=== PATIENT | male | born 1985 | race Hispanic/Latino ===

== ENCOUNTER 2018-08-03 08:47 | Emergency (ER) | payer BC ==
[2018-08-03 09:14] VITALS: BMI 29.9
--- NOTE | 2018-08-03 09:51 | ED PDOC ---
Arrival/HPI - General Chief Complaint: Finger,Hand,&Wrist Historian: Patient - History of Present Illness Narrative History of Present Illness (Text): 08/03/18 09:48 32 y/o male, no significant pmh, nkda, c/o rt. hand pain and swelling s/p punched the tile wall about 2 days ago. Aching pain, swelling, no numbness or tingling, concerning for fracture, mild pain with severity 2/10, refused pain med, no palpitation or chest pain, no other medical or psychological complaints. Past Medical History - Provider Review Nursing Documentation Reviewed: Yes - Cardiac Hx Cardiac Disorders: No - Pulmonary Hx Respiratory Disorders: No - Neurological Hx Neurological Disorder: No - HEENT Hx HEENT Disorder: No - Renal Hx Renal Disorder: No - Endocrine/Metabolic Hx Endocrine Disorders: Yes Hx Diabetes Mellitus Type 2: Yes - Hematological/Oncological Hx Blood Disorders: No - Integumentary Hx Dermatological Disorder: No - Musculoskeletal/Rheumatological Hx Musculoskeletal Disorders: No - Gastrointestinal Hx Gastrointestinal Disorders: No - Genitourinary/Gynecological Hx Genitourinary Disorders: No - Psychiatric Hx Psychophysiologic Disorder: No Hx Substance Use: No - Anesthesia Hx Anesthesia: No Family/Social History - Physician Review Nursing Documentation Reviewed: Yes Family/Social History: Unknown Family HX Smoking Status: Current Some Days Smoker Hx Alcohol Use: Yes Frequency of alcohol use: Socially Hx Substance Use: No Allergies/Home Meds Allergies/Adverse Reactions: Allergies No Known Allergies Allergy (Verified 08/03/18 09:50) Review of Systems - Review of Systems Constitutional: absent: Fatigue, Fevers Eyes: absent: Vision Changes ENT: absent: Hearing Changes Respiratory: absent: SOB, Cough Cardiovascular: absent: Chest Pain Gastrointestinal: absent: Abdominal Pain, Diarrhea, Nausea, Vomiting Musculoskeletal: Arthralgias, Joint Swelling. absent: Back Pain, Neck Pain, Myalgias Skin: absent: Rash Neurological: absent: Headache, Dizziness Psychiatric: absent: Anxiety, Depression, Suicidal Ideation Physical Exam Vital Signs Reviewed: Yes Vital Signs Temp Pulse Resp BP Pulse Ox 08/03/18 09:09 98.4 F 81 16 133/92 H 98 Temperature: Afebrile Blood Pressure: Hypertensive Pulse: Regular Respiratory Rate: Normal Appearance: Positive for: Well-Appearing, Non-Toxic, Comfortable Pain Distress: Mild Mental Status: Positive for: Alert and Oriented X 3 - Systems Exam Head: Present: Atraumatic, Normocephalic Pupils: Present: PERRL Extroacular Muscles: Present: EOMI Conjunctiva: Present: Normal Mouth: Present: Moist Mucous Membranes Neck: Present: Normal Range of Motion Respiratory/Chest: Present: Clear to Auscultation, Good Air Exchange. No: Respiratory Distress, Accessory Muscle Use Cardiovascular: Present: Regular Rate and Rhythm, Normal S1, S2. No: Murmurs Abdomen: No: Tenderness, Distention, Peritoneal Signs Back: Present: Normal Inspection Upper Extremity: Present: Normal Inspection, Other (Rt. hand: +ttp and swelling to the lateral hand aspect with no erythematous or deformity, no cellulitis or ulcers, FROM without limitation, no signs of compartment syndrome, sensation intact, motor 5/5, +radial pulse, capillary refill< 2 seconds, neurovascular intact, skin is intact, no scaphoid tenderness. ). No: Cyanosis, Edema Lower Extremity: Present: Normal Inspection. No: Edema Neurological: Present: GCS=15, CN II-XII Intact, Speech Normal, Motor Func Grossly Intact, Normal Cerebellar Funct, Gait Normal, Memory Normal Skin: Present: Warm, Dry, Normal Color. No: Rashes Psychiatric: Present: Alert, Oriented x 3, Normal Insight, Normal Concentration Medical Decision Making ED Course and Treatment: 08/03/18 09:51 -Rt. hand xray -pt. refused pain med -Observe and reassess 08/03/18 11:48 -Rt. hand xray: +5th mcp fracture with angulation -will attempt to reduced. 08/03/18 14:00 -Post reduction: There is no significant change in the alignment of the 5th metacarpal angulated fracture. -I spoke and discussed with Dr. Urbina about the case and reduction, he agreed that this patient can be discharge home for possible ORIF but he will explained to the patient in person when he sees the patient. -Reduction with limited success, neurovascular intact, injury is 2 days ago. -Ulnar gutter splint applied by me with neurovascular intct. -Discharge home with ulnar gutter splint, motrin, follow up with your pmd and hand surgeon within 2 days, return to the ER for any new or worsening signs or symptoms. - RAD Interpretation Radiology Orders: Rt. hand xray initial PROCEDURE: Right Hand Radiographs. HISTORY: punched wall, rt. lateral pain and swellling x 2 d COMPARISON: None. TECHNIQUE: Four views obtained. FINDINGS: BONES: There is an angulated fracture of the neck of the 5th metacarpal. JOINTS: Normal. No osteoarthritic changes. SOFT TISSUES: Normal. OTHER FINDINGS: None. IMPRESSION: There is an angulated fracture of the neck of the 5th metacarpal. Rt. hand xray post: Date of service: 08/03/2018 PROCEDURE: Right hand three views HISTORY: rt. hand 5th mcpj reduction COMPARISON: Earlier same day TECHNIQUE: Three views obtained. FINDINGS: BONES: There is no significant change in the alignment of the 5th metacarpal angulated fracture. JOINTS: Normal. No dislocation. SOFT TISSUES: Normal. OTHER FINDINGS: None. IMPRESSION: There is no significant change in the alignment of the 5th metacarpal angulated fracture. [employer] Team Leader: Radiologist - PA / PROGRAM ADMIN / Resident Statement / has reviewed & agrees with the documentation as recorded. Disposition/Present on Arrival - Present on Arrival Any Indicators Present on Arrival: No History of DVT/PE: No History of Uncontrolled Diabetes: No Urinary Catheter: No History of Decub. Ulcer: No History Surgical Site Infection Following: None - Disposition Have Diagnosis and Disposition been Completed?: Yes Diagnosis: Hand fracture Disposition: HOME/ ROUTINE Disposition Time: 14:02 Patient Plan: Admission, Discharge Condition: GOOD Discharge Instructions (ExitCare): Hand Fracture Additional Instructions: -Discharge home with ulnar gutter splint, motrin, follow up with your pmd and hand surgeon within 2 days, return to the ER for any new or worsening signs or symptoms. Prescriptions: Ibuprofen [Motrin] 600 mg PO QID PRN #30 tab PRN Reason: Other Referrals: Vikas Thompson MD [Primary Care Provider] - Follow up with primary Moody Urbina MD [Staff Provider] - Follow up with primary Forms: [employer] ([place]), WORK NOTE
[2018-08-03] MEDS ORDERED: Lidocaine 1% 5ml Abboject ONE (11:42)
--- NOTE | 2018-08-03 12:57 | RAD ---
PROCEDURE: Right Hand Radiographs. HISTORY: punched wall, rt. lateral pain and swellling x 2 d COMPARISON: None. TECHNIQUE: Four views obtained. FINDINGS: BONES: There is an angulated fracture of the neck of the 5th metacarpal. JOINTS: Normal. No osteoarthritic changes. SOFT TISSUES: Normal. OTHER FINDINGS: None. IMPRESSION: There is an angulated fracture of the neck of the 5th metacarpal.
--- NOTE | 2018-08-03 13:12 | RAD ---
Date of service: 08/03/2018 PROCEDURE: Right hand three views HISTORY: rt. hand 5th mcpj reduction COMPARISON: Earlier same day TECHNIQUE: Three views obtained. FINDINGS: BONES: There is no significant change in the alignment of the 5th metacarpal angulated fracture. JOINTS: Normal. No dislocation. SOFT TISSUES: Normal. OTHER FINDINGS: None. IMPRESSION: There is no significant change in the alignment of the 5th metacarpal angulated fracture.
[2018-08-03 14:33] VITALS: BP 125/81; PULSE 78; RESP 17; TEMP 98.1; O2SAT 99
== END 2018-08-03 14:32 | disposition home or self-care (01) ==
LOC: ED 08:47 → MERGE 08:47 → ED 14:32
DX: S62.336A Displaced fracture of neck of fifth metacarpal bone, right hand, initial encounter for closed fracture (principal); W22.09XA Striking against other stationary object, initial encounter; E11.9 Type 2 diabetes mellitus without complications